=== PATIENT | male | born 1975 | race Caucasian/White ===

== ENCOUNTER 2019-02-13 20:19 | Emergency (ER) | payer MEDICAID ==
[~2019-02-13] VITALS: Ht 182.9 cm; Wt 79.5 kg
[2019-02-13 20:30] VITALS: Ht 182.9 cm; Wt 79.5 kg
[2019-02-13 21:23] LABS: BASOPHILS 0.4 % (0-2); EOSINOPHILS 2.1 % (0-7); HEMATOCRIT 41.4 % (42.0-54.0); HEMOGLOBIN 14.2 g/dL (13.5-17.5); MCH 31.8 pg (26.0-34.0); MCHC 34.3 g/dL (31.0-37.0); MCV 92.8 fL (80.0-100.0); MEAN PLATELET VOLUME 9.7 fL (7.4-10.4); NEUTROPHILS 57.5 % (40-80); PLATELET COUNT 236 10x3/uL (130-400); RBC 4.46 10x6/uL (4.20-6.10); RDW 13.2 % (11.5-14.5)
[2019-02-13 21:23] LABS: APPEARANCE CLEAR (CLEAR); COLOR YELLOW (YELLOW)
[2019-02-13 21:24] LABS: BILIRUBIN NEGATIVE (NEGATIVE); GLUCOSE NEGATIVE (NEGATIVE); KETONE SMALL mg/dL (NEGATIVE); NITRITE NEGATIVE (NEGATIVE); PROTEIN 1+ mg/dL (NEGATIVE); UROBILINOGEN NORMAL (NORMAL)
[2019-02-13 21:32] LABS: BACTERIA FEW /hpf (NONE SEEN); EPITHELIAL CELLS 0-5 /hpf (0-5); RED CELLS - URINE OCC /hpf (0-5); WHITE CELLS - URINE 0-5 /hpf (0-5)
[2019-02-13 21:38] LABS: ANION GAP 15.5 mmol/L (8-16); BILIRUBIN - TOTAL 0.36 mg/dL (0.2-1.3); CALCIUM 10.8 mg/dL (8.5-10.1); CARBON DIOXIDE 23.3 mmol/L (21.0-32.0); CREATININE - SERUM 1.2 mg/dL (0.6-1.3); POTASSIUM - SERUM 3.8 mmol/L (3.5-5.1); PROTEIN - SERUM 8.4 g/dL (6.4-8.2)
[2019-02-13] MEDS ORDERED: TORADOL10 MG PO (22:32)
[2019-02-13] MEDS ORDERED: CIPRO500 MG PO (22:32)
[2019-02-13 23:36] VITALS: BP 96/63
== END 2019-02-13 23:30 | disposition home or self-care (01) ==
LOC: D.ER 20:19
PROVIDERS: Family Medicine
DX: N20.0 Calculus of kidney (principal); N39.0 Urinary tract infection, site not specified; R11.10 Vomiting, unspecified; N50.812 Left testicular pain

== ENCOUNTER 2019-08-16 02:42 | Emergency (ER) | payer MEDICAID ==
[~2019-08-16] VITALS: Ht 182.9 cm; Wt 81.8 kg
[~2019-08-16 02:42] MED LIST: CIPRO500 MG PO; TORADOL10 MG PO
[2019-08-16 02:48] VITALS: Ht 182.9 cm; Wt 81.8 kg
[2019-08-16 05:27] VITALS: BP 109/74
== END 2019-08-16 05:28 | disposition home or self-care (01) ==
LOC: D.ER 02:42
DX: J02.8 Acute pharyngitis due to other specified organisms (principal)